=== PATIENT | female | born 1950 | race Asian ===

== ENCOUNTER → 2020-06-12 | Outpatient (CLI) | payer MEDICARE ==
[~2020-06-12] MED LIST: CALC-787 PO; OMEP-110 PO; amlodipine PO; tylenol PO
== END | disposition home or self-care (01) ==
LOC: STAR 11:29
PROVIDERS: ATTEND Internal Medicine Geriatric Medicine
DX: Z01.818 Encounter for other preprocedural examination (principal); K80.50 Calculus of bile duct without cholangitis or cholecystitis without obstruction; R94.31 Abnormal electrocardiogram [ECG] [EKG]; Z20.822 Contact with and (suspected) exposure to COVID-19
CPT/HCPCS: 87635; 93005

== ENCOUNTER 2020-07-10 08:38 | Outpatient (CLI) | payer MEDICARE ==
[~2020-07-10 08:38] MED LIST changes: +LOSARTAN PO
[2020-07-10] MEDS ORDERED: AMLO-211 PO (09:03)
[2020-07-10] MEDS ORDERED: ACET-1600 PO (09:54)
== END 2020-07-10 23:59 | disposition home or self-care (01) ==
LOC: STAR 08:38
PROVIDERS: ATTEND Internal Medicine Geriatric Medicine
DX: Z20.822 Contact with and (suspected) exposure to COVID-19 (principal); K83.1 Obstruction of bile duct
CPT/HCPCS: U0003

== ENCOUNTER 2020-07-15 09:01 | Day surgery (SDC) | payer MEDICARE ==
[~2020-07-15] VITALS: Ht 162.6 cm; Wt 61.0 kg
[~2020-07-15 09:01] MED LIST changes: +ACET-1600 PO; +ACETAMINOPHEN 325 MG TABLET PO PRN; +AMLO-211 PO; +EPHEDRINE 50 MG/ML, 1ML IVPush PRN; +FENTANYL PF 100 MCG/2ML IV PRN; +HYDROmorphone 1 MG/ML, 1ML INJ IVPush PRN; +LABETALOL 5MG/ML, 20ML IV PRN; +ONDANSETRON 2MG/ML, 2ML IVPush PRN; +OXYcodone 5 MG/5 ML ORAL.SOL UDC PO PRN; +PROMETHAZINE 25 MG/ML, 1ML IVPush PRN; +hydrALAzine 20 MG/ML, 1ML IV PRN
[2020-07-15 09:42] VITALS: BP 148/102
[2020-07-15] MEDS ORDERED: CHLORHEXIDINE 15 ML UDC MM ONE (10:00)
[2020-07-15] MEDS ORDERED: LACTATED RINGERS 1,000 ML IV SCH (10:00)
[2020-07-15] MEDS ORDERED: FENTANYL PF 100 MCG/2ML ONE (12:30)
[2020-07-15] MEDS ORDERED: OMNIPAQUE 350 MG/ML, 50 ML BOTTLE ONE (13:25)
[2020-07-15] MEDS ORDERED: PROPOFOL 10 MG/ML, 20ML ONE (13:57)
[2020-07-15] MEDS ORDERED: ONDANSETRON 2MG/ML, 2ML ONE (13:57)
[2020-07-15] MEDS ORDERED: SUCCINYLCHOLINE 20 MG/ML, 10ML ONE (13:57)
[2020-07-15] MEDS ORDERED: KETOROLAC 30 MG/1 ML ONE (13:57)
[2020-07-15] MEDS ORDERED: LIDOCAINE-MPF 2% ,5ML ONE (13:57)
== END 2020-07-15 16:00 | disposition home or self-care (01) ==
LOC: OUT 09:01
PROVIDERS: ATTEND Internal Medicine Geriatric Medicine
DX: Z46.59 Encounter for fitting and adjustment of other gastrointestinal appliance and device (principal); K80.51 Calculus of bile duct without cholangitis or cholecystitis with obstruction; I10 Essential (primary) hypertension; Z79.899 Other long term (current) drug therapy
CPT/HCPCS: 43237; 43262; 43264; 43275; 74328; C1769; J0330; J1885; J2405; J2704; J3010; J7120; Q9967